=== PATIENT | male | born 1950 | race Caucasian/White ===

== ENCOUNTER → 2021-02-20 | Outpatient (CLI) | payer MEDICARE ==
[~2021-02-20] MED LIST: ASPI-963 PO; ATOR40TA78 PO; AZIT250T89 PO; Albuterol-Ipratropium Mdi INH; CARV3.122 PO; CIPR500T87 PO; CLOP75TA PO; DOXY100T23 PO; LOSA100T14 PO; METH4TAB2 PO; PRED20TA PO; TIOT18CA INH
== END | disposition home or self-care (01) ==
LOC: CVU 15:33
PROVIDERS: ATTEND Internal Medicine Cardiovascular Disease
DX: I08.2 Rheumatic disorders of both aortic and tricuspid valves (principal); J44.9 Chronic obstructive pulmonary disease, unspecified; I25.10 Atherosclerotic heart disease of native coronary artery without angina pectoris; I10 Essential (primary) hypertension; E78.5 Hyperlipidemia, unspecified; Z87.891 Personal history of nicotine dependence
CPT/HCPCS: 93306

== ENCOUNTER → 2021-04-30 | Outpatient (CLI) | payer MEDICARE | END | disposition home or self-care (01) | LOC: RAD 07:10 | PROVIDERS: ATTEND Family Medicine | DX: R22.1 Localized swelling, mass and lump, neck (principal); M79.9 Soft tissue disorder, unspecified | CPT/HCPCS: 76536 ==

== ENCOUNTER 2021-05-23 13:05 | Outpatient (CLI) | payer MEDICARE ==
[2021-05-23] MEDS ORDERED: LIDOCAINE-MPF 1%, 5ML ONE (13:16)
[2021-05-23 13:59] LABS: CREATININE 0.84 mg/dL (0.7-1.3)
[2021-05-23] MEDS ORDERED: OMNIPAQUE 350 MG/ML, 100ML BOTTLE ONE (14:15)
[2021-06-12] MEDS ORDERED: KRIL500C PO (06:17)
[2021-06-12] MEDS ORDERED: potassium chloride PO (06:17)
[2021-06-12] MEDS ORDERED: multi vit PO (06:17)
[2021-06-12] MEDS ORDERED: vit d3 PO (06:17)
[2021-06-12] MEDS ORDERED: furosemide PO (06:17)
[2021-06-12] MEDS ORDERED: TRAZ-175 PO (06:17)
[2021-06-12] MEDS ORDERED: vit c PO (06:17)
== END 2021-05-23 23:59 | disposition home or self-care (01) ==
LOC: RAD 13:05
PROVIDERS: ATTEND Family Medicine
DX: R22.1 Localized swelling, mass and lump, neck (principal); C09.9 Malignant neoplasm of tonsil, unspecified; C77.0 Secondary and unspecified malignant neoplasm of lymph nodes of head, face and neck
CPT/HCPCS: 20206; 36415; 70491; 76942; 82565; 88305; 88333; 88341; 88342; Q9967

== ENCOUNTER 2021-06-12 05:33 | Day surgery (SDC) | payer MEDICARE ==
[~2021-06-12] VITALS: Ht 177.8 cm; Wt 94.2 kg
[2021-06-12 06:34] VITALS: BP 115/74
== END 2021-06-12 09:00 | disposition home or self-care (01) ==
LOC: OUT 05:33
PROVIDERS: ATTEND Otolaryngology
DX: J39.2 Other diseases of pharynx (principal); C09.9 Malignant neoplasm of tonsil, unspecified; C10.9 Malignant neoplasm of oropharynx, unspecified; I10 Essential (primary) hypertension; I25.10 Atherosclerotic heart disease of native coronary artery without angina pectoris; E78.5 Hyperlipidemia, unspecified; J44.9 Chronic obstructive pulmonary disease, unspecified; F17.210 Nicotine dependence, cigarettes, uncomplicated; Z20.822 Contact with and (suspected) exposure to COVID-19; Z79.899 Other long term (current) drug therapy; Z88.0 Allergy status to penicillin; Z95.5 Presence of coronary angioplasty implant and graft; Z99.81 Dependence on supplemental oxygen